=== PATIENT | female | born 1940 | race Two or more races ===

== ENCOUNTER 2020-05-04 16:38 | Emergency (ER) | payer OTHER ==
[2020-05-04 16:56] VITALS: BP 156/75; PULSE 71; TEMP 97.3; BMI 28.7
--- NOTE | 2020-05-04 17:04 | PDOC ---
History of Present Illness - General Chief Complaint: Altered Mental Status Stated Complaint: AMS Time Seen by Provider: 05/04/20 16:48 - History of Present Illness Initial Comments: Radha Hart is a 79 y/o female with PMH significant HTN and HLD, BIBEMS after being found wandering outside in the rain. Pt is visiting from [place] and has been here for the past several months. Staying with daughter, who has noticed gradually worsening memory loss and confusion over the past 2-3 months. Today was the first time patient walked outside of the home and was found wandering around. A&Ox2 to person and place. Pt denies any complaints. No chest pain/shortness of breath. No abd pain. No leg swelling. No back pain. No headache. Past History - Medical History Allergies/Adverse Reactions: Allergies Allergy/AdvReac Type Severity Reaction Status Date / Time No Allergy Information Allergy Verified 05/04/20 16:56 Available Home Medications: Ambulatory Orders NK [No Known Home Medication] 05/04/20 COPD: No HTN: Yes Hypercholesterolemia: Yes - Psycho-Social/Smoking History Smoking History: Never smoked Have you smoked in the past 12 months: No Information on smoking cessation initiated: No - Substance Abuse Hx (Audit-C & DAST Scrn) How often the patient has a drink containing alcohol: Never Score: In Men: 4 or > Positive; In Women: 3 or > Positive: 0 Screen Result (Pos requires Nsg. Audit-10AR): Negative In the last yr the pt used illegal drug/Rx for NonMed reason: No Score: Yes response is considered Positive: 0 Screen Result (Positive result requires Nsg. DAST-10): Negative Review of Systems - Review of Systems Comments:: GENERAL/CONSTITUTIONAL: No fever or chills. No weakness._ HEAD, EYES, EARS, NOSE AND THROAT: No change in vision. No change in hearing. No sore throat._ CARDIOVASCULAR: No chest pain or shortness of breath_ RESPIRATORY: Denies cough, hemoptysis_ GASTROINTESTINAL: No nausea, vomiting, diarrhea or constipation._ GENITOURINARY: No dysuria, frequency, or change in urination._ MUSCULOSKELETAL: No joint or muscle swelling or pain. No neck or back pain._ SKIN: No rash_ NEUROLOGIC: No headache, vertigo, loss of consciousness, or change in strength/sensation._ ENDOCRINE: No increased thirst. No abnormal weight change_ HEMATOLOGIC/LYMPHATIC: No anemia, easy bleeding, or history of blood clots._ ALLERGIC/IMMUNOLOGIC: No hives or skin allergy._ *Physical Exam - Vital Signs Last Vital Signs Temp Pulse Resp BP Pulse Ox 97.3 F L 71 18 156/75 97 05/04/20 16:48 05/04/20 16:48 05/04/20 16:48 05/04/20 16:48 05/04/20 16:48 - Physical Exam GENERAL: Awake, alert, and oriented to person/place, in no acute distress_ HEAD: No signs of trauma, normocephalic, atraumatic _ EYES: PERRLA, EOMI, sclera anicteric, conjunctiva clear_ ENT: Hearing grossly normal, nares patent, oropharynx clear without exudates. No uvular deviation. Moist mucosa_ NECK: Normal ROM, supple, no lymphadenopathy, JVD, or masses_ LUNGS: No distress, speaks in full sentences, clear to auscultation bilaterally _ HEART: Regular rate and rhythm, normal S1 and S2, no murmurs appreciated, peripheral pulses normal and equal bilaterally._ ABDOMEN: Soft, nontender, normoactive bowel sounds. No guarding, no rebound. No masses_ EXTREMITIES: Normal inspection, Normal range of motion, no edema. No clubbing or cyanosis_ NEUROLOGICAL: Cranial nerves II through XII grossly intact. Normal speech, normal gait, no focal sensorimotor deficits _ SKIN: Warm, Dry, normal turgor, no rashes or lesions noted_ Medical Decision Making - Medical Decision Making 05/04/20 17:30 79F BIBEMS after daughter reported her missing and she was found wandering around the streets. No complaints at this time. Exam wnl. Daughter is at bedside and able to care for patient. Safe discharge plan in place. Will send home with PCP and neuro f/u for likely dementia. All questions answered. Return precautions given. Pt and daughter verbalized understanding and agreement with plan. Discharge - Discharge Information Problems reviewed: Yes Clinical Impression/Diagnosis: Altered behavior Condition: Stable Disposition: HOME - Admission No - Follow up/Referral Referrals: [facility] [place] [facility] [place] [Provider Group] Robin Leal MD [Non Staff, Medical] - - Patient Discharge Instructions Patient Printed Discharge Instructions: DI for Alzheimer's Disease Additional Instructions: Please make a follow up appointment with a primary care doctor and a neurologist (referral provided here). Please keep yourself well hydrated and nourished. If you experience any new, worsening, or concerning symptoms, including change in mental status, confusion, lethargy, chest pain, shortness of breath, or any other concerns, please return to the emergency department. - Post Discharge Activity
--- NOTE | 2020-05-04 17:20 | PDOC ---
Documentation entered by Merissa Kapoor SCRIBE, acting as scribe for Sven Groves MD. Sven Groves MD: This documentation has been prepared by the Emelia gimenez Adrianna, SCRIBE, under my direction and personally reviewed by me in its entirety. I confirm that the documentation accurately reflects all work, treatment, procedures, and medical decision making performed by me. Attending Attestation - Resident Resident Name: Jarrett Frye - ED Attending Attestation I have performed the following: I have examined & evaluated the patient, The case was reviewed & discussed with the resident, I agree w/resident's findings & plan, Exceptions are as noted - HPI HPI: The patient is a 78 year old female, with a significant PMH of dementia (progressively worsening over the past 3 months), HTN, and HLD, who presents to the ED after being found wandering outside. As per daughter at bedside, the patient wandered out of the house and could not be found. The daughter called the police, and the patient was found walking around in the rain and was brought to the ED by EMS. Daughter states that the pt is at her baseline mentation. Pt has no complaints. - Physicial Exam PE: GENERAL: The patient is awake, alert, and fully oriented, Nontoxic - in no acute distress. HEAD: Normocephalic, atraumatic. EYES: extraocular movements intact, sclera anicteric, conjunctiva clear. ENT: Normal voice, Moist mucous membranes. NECK: Normal range of motion, supple LUNGS: Breath sounds equal, clear to auscultation bilaterally. No wheezes, no rhonchi, no rales. HEART: Regular rate and rhythm, without murmur, rub or gallop. ABDOMEN: Soft, nontender, No guarding, no rebound.No CVA tenderness EXTREMITIES: Normal range of motion, no edema. No cyanosis. No erythema, or tenderness. NEUROLOGICAL: No facial asymmetry, Normal speech, PSYCH: Normal mood, normal affect. SKIN: Warm, Dry, normal turgor. - Medical Decision Making 05/04/20 17:18 78 F with dementia brought to ED by EMS after being found wandering outside. Pt with no acute complaints and is at baseline mentation per daughter. No focal neuro deficits or s/s suggestive of acute medical problem. - Will DC with neuro f/u Pt is well appearing, with normal vitals. Clinically stable for DC at this time. I discussed the physical exam findings, ancillary test results and final diagnoses with the patient. I answered all of the patient's questions. The patient was satisfied with the care received and felt comfortable with the discharge plan and treatment plan. The patient agrees to follow up with the primary care physician within 24-72 hours. Please note this patient was evaluated during the COVID-19 crisis with the presidential [place] Act Declaration and the [employer] governor executive order number 202. He/she was evaluated and clinical decisions were made relative to healthcare system resources as well as clinical picture during a pandemic crisis situation. Discharge - Discharge Information Problems reviewed: Yes Clinical Impression/Diagnosis: Altered behavior Condition: Stable Disposition: HOME - Follow up/Referral [place] [facility] [place] [facility] [place]Provider Group] Robin Leal MD [Non Staff, Medical] - - Patient Discharge Instructions Patient Printed Discharge Instructions: DI for Alzheimer's Disease Additional Instructions: Please make a follow up appointment with a primary care doctor and a neurologist (referral provided here). Please keep yourself well hydrated and nourished. If you experience any new, worsening, or concerning symptoms, including change in mental status, confusion, lethargy, chest pain, shortness of breath, or any other concerns, please return to the emergency department. - Post Discharge Activity
== END 2020-05-04 17:32 | disposition home or self-care (01) ==
LOC: JER 16:38
DX: R46.89 Other symptoms and signs involving appearance and behavior (principal)
CPT/HCPCS: 99283-25

== ENCOUNTER 2020-08-15 15:52 | Emergency (ER) | payer OTHER ==
[2020-08-15 16:02] VITALS: BP 128/72; PULSE 64; BMI 30.1
--- OUTSIDE RECORDS SUMMARY | 2020-08-15 16:25 | XMS ---
:1940 [facility] Care Team Providers Name Role Phone EMERGENCY SERVICE, X Unavailable Unavailable COCUZZA, NITA Unavailable Unavailable NOBLER, PAVEL Unavailable Unavailable Re-disclosure Warning The records that you are about to access may contain information from federally- assisted alcohol or drug abuse programs. If such information is present, then the following federally mandated warning applies: This information has been disclosed to you from records protected by federal confidentiality rules (42 CFR part 2). The federal rules prohibit you from making any further disclosure of this information unless further disclosure is expressly permitted by the written consent of the person to whom it pertains or as otherwise permitted by 42 CFR part 2. A general authorization for the release of medical or other information is NOT sufficient for this purpose. The Federal rules restrict any use of the information to criminally investigate or prosecute any alcohol or drug abuse patient.The records that you are about to access may contain highly sensitive health information, the redisclosure of which is protected by Article 27-F of the [facility] Public Health law. If you continue you may haveaccess to information: Regarding HIV / AIDS; Provided by facilities licensed or operated by the [facility] Office of Mental Health; or Provided by the [facility] Office for People With Developmental Disabilities. If such information is present, then the following [facility] mandated warning applies: This information has been disclosed to you from confidential records which are protected by state law. State law prohibits you from making any further disclosure of this information without the specific written consent of the person to whom it pertains, or as otherwise permitted by law. Any unauthorized further disclosure in violation of state law may result in a fine or retirement sentence or both. A general authorization for the release of medical or other information is NOT sufficient authorization for further disclosure. Allergies and Adverse Reactions Type Description Substance Reaction Status Data Source(s ) Drug allergy No Known Allergies No Known [facility] Allergies [facility] Drug allergy No Known Drug No Known Drug [facility] Allergies Allergies [facility] Food allergy No Known Food No Known Food [facility] Allergies Allergies [facility] Care [facility] Encounters Encounter Providers Location Date Indications Data Source(s ) Inpatient Attender: UZIEL 07/11/2020 DEPRESSION [facility] PAVELAdmitter: 09:40:00 PM Health Care UZIEL PAVEL EDT - Corporat ion 07/19/2020 02:43:00 PM EDT DEPRESSION Patient admitted. Emergency Attender: UZIEL 07/11/2020 NOT SLEEPING [facility] PAVELAttender: 11:06:00 AM EDT FOR 3 DAYS Co [facility] EMERGENCY SERVICE, Care C orporation XAdmitter: EMERGENCY SERVICE, X NOT SLEEPING FOR 3 DAYS Emergency Attender: QUIANA 04/05/2020 03:30:00 ANKLE PA IN [facility] TINAAttender: EMERGENCY [facility], XAdmitter: Corpo ration COCUZZA, NITA ANKLE PAIN Medications Medication Brand Start Product Dose Route Administrative Pharmacy [facility] Indications Reaction Description Data Name Date Form Instructions Instructions Source(s) Colace Colace UNK active Colace [facility] (Docusate S (Docus 2020 mg (Docusate r County ate S 08:54: Sodium) Oral Heal th 47 PM 100 mg PO Care EDT Corporatio n Medication administered onsite Naproxen 04/05/2020 999 UNK completed Napro xen 500 [place] 500 MG 06:06:45 PM MG MG Oral Cou Your Policy Manager Health Oral EDT Tablet Care Tablet [N [Naprosyn] Didier oration Take one (1) by mouth two (2) times a day with food as needed for pain Dispense: 20 Naproxen 04/05/2020 999 UNK completed Napro xen 500 [place] 500 MG 06:06:45 PM MG MG Oral Cou ntC3 [employer] Health Oral EDT Tablet Care Tablet [N [Naprosyn] Didier oration Take one (1) by mouth two (2) times a day with food as needed for pain Dispense: 20 Tylenol Tylenol 04/05/2020 650 UNK active Tylen ol [place] (Acetamino (Acetamin 03:52:54 PM mg (A cetaminoph [facility] ph oph EDT en) Oral 650 Care mg PO Corporation Medication administered onsite Insurance Providers Payer name Policy type Policy ID Covered Covered republican's Policy P casey / Coverage republican ID relationship to [facility] type kirby MEDICAID [id number] SP [id number] UNK UNK UNK SELF PAY SP INSURANCE Problems, Conditions, and Diagnoses Code Display Name Description Problem Type Effective Data Sour ce(s) Dates Z20.828 Contact with and CONTACT W AND Diagnosis 07/19/2020 [facility] (suspected) EXPOSURE TO OTH 02:43:00 PM [facility] exposure to other VIRAL COMMUNICABLE EDT Care viral communicable DISEASES Corpor ation diseases J45.909 Unspecified UNSPECIFIED Diagnosis 07/19/2020 [place] asthma, ASTHMA, 02:43:00 PM [facility] uncomplicated UNCOMPLICATED EDT Care Corporation E78.5 Hyperlipidemia, HYPERLIPIDEMIA, Diagnosis 07/19/2020 [place] unspecified UNSPECIFIED 02:43:00 PM [facility] EDT Care Corporation I10 Essential ESSENTIAL Diagnosis 07/19/2020 [place] (primary) (PRIMARY) 02:43:00 PM [facility] hypertension HYPERTENSION EDT Care Corporation R41.9 Unspecified UNSP SYMPTOMS AND Diagnosis 07/19/2020 [facility] symptoms and signs SIGNS W COGNITIVE 02:43:00 P [facility] involving FUNCTIONS AND EDT Care cognitive AWARENESS Corporation functions and awareness F31.9 Bipolar disorder, BIPOLAR DISORDER, Diagnosis 07/19/2020 [place] unspecified UNSPECIFIED 02:43:00 PM [facility] EDT Care Corporation F32.9 Major depressive MAJOR DEPRESSIVE Diagnosis 07/11/2020 [facility] clark disorder, single DISORDER, SINGLE 09:40:00 PM [facility] episode, EPISODE, EDT Care unspecified UNSPECIFIED Corporation E78.00 Pure PURE Diagnosis 04/05/2020 [place] hypercholesterolem HYPERCHOLESTEROLEM 03:30:00 PM [facility] ia, unspecified IA, UNSPECIFIED EDT Care Corporation M17.11 Unilateral primary UNILATERAL PRIMARY Diagnosis 0 [place] osteoarthritis, OSTEOARTHRITIS, 03:30:00 PM [facility] right knee RIGHT KNEE EDT Care Corporation M71.21 Synovial cyst of SYNOVIAL CYST OF Diagnosis 04/05/[address] [facility] popliteal space POPLITEAL SPACE 03:30:00 PM [facility] T[employer]ine [Selina], right (SELINA), RIGHT EDT Care knee KNEE [employer] [facility] M79.661 Pain in right PAIN IN RIGHT Diagnosis 04/05/2020 [facility] lower leg LOWER LEG 03:30:00 PM [facility] EDT Care [facility] [facility] Results ID Date Data Source [id number] 07/13/2020 01:30:00 PM EDT [facility] [id number] Corporation Name Value Range Interpretation Description Data Sup porting Code Source(s) Document(s ) Brain (PACSIMAGE <td> 07/13/2020 [place] With&With 13:30</td><td> [facility] ) Final [facility] Care Contrast- Result With&Without Corporation MRI Name: Daryl WHITESIDE-MRI [place] MRN: </td><td><paragra [id number] Sex: F ph : styleCode="Italic 1940 s">(PACSIMAGE Location: F Admitting )</paragraph><br/ Physician: >
Final PAVEL Result NOBLER

Requesting Name: MIESHA Physician: CA GUTIÉRREZ
MRN: Exam: MRI [id number] Sex: F BRAIN C+/C-
07/13/2020 : 1940 14:33 Location: F CLINICAL
INDICATION: Admitting Depression, Physician: altered mental PAVEL NOBLER status
COMPARISON: CT Requesting of the head Physician: ANDREW July 11BROCK 2019

TECHNIQUE: Exam: MRI BRAIN Multiplanar, C+/C- 07/13/2020 multisequence 14:33 MR imaging of

the brain CLINICAL was attempted, INDICATION: but patient Depression, aborted exam altered mental before all status postcontrast

imaging could COMPARISON: CT of be obtained. the head CONTRAST: July 11, of 2019 Gadavist.

FINDINGS: TECHNIQUE: Early Multiplanar, termination of multisequence MR examination by imaging of the patient, brain particularly
was before attempted, but postcontrast patient aborted imaging was exam before all obtained, postcontrast limits
evaluation. imaging could be Additionally, obtained. motion limits

evaluation. CONTRAST: 6 mL of There is no Gadavist. evidence of

mass, FINDINGS: intracranial

hemorrhage, or Early termination acute of examination by infarction. No patient, abnormal particularly intracranial before enhancement is
seen. postcontrast There are imaging was moderate obtained, limits subcortical evaluation. and Additionally, periventricula
r T2/FLAIR motion limits hyperintensiti evaluation. es as well

as in the There is no zuleyka, evidence of mass, nonspecific intracranial but likely hemorrhage, or representing acute chronic
ischemic infarction. No change. abnormal Chronic intracranial infarctions enhancement is are seen seen. within the

left basal There are ganglia. moderate There is subcortical and prominence of periventricular the T2/FLAIR ventricular hyperintensities system and
sulci as well as in consistent the zuleyka, with volume nonspecific but loss . No likely midline shift representing or other chronic significant
mass effect ischemic change. is noted. Chronic There is infarctions are preserved seen within the flow-void left within the
basal proximal ganglia. intracranial

arteries, There is suggestive of prominence of the their patency. ventricular The orbital system and sulci contents are consistent grossly
unremarkable. with volume loss There is . No midline no cerebellar shift or other tonsillar significant mass ectopia.
IMPRESSION: effect is Limited noted. evaluation due

to motion and There is patient preserved terminating flow-void within examination.. the proximal 1. No intracranial evidence of
acute arteries, infarction or suggestive of hemorrhage. their patency. 2. No abnormal The orbital intraparenchym contents are al enhancement
on limited grossly postcontrast unremarkable. imaging.

Resident There is no Radiologist: cerebellar Attending tonsillar Radiologist: ectopia. Khoi

Salvatore SANTILLAN IMPRESSION: Finalizing

Radiologist: Juhi Westfall evaluation due to Salvatore SANTILLAN motion and Transcribed patient Date: terminating 07/13/2020 examination.. 14:35

Finalized 1. No Date: evidence of acute 07/13/2020 infarction or 14:50 hemorrhage.
2. No abnormal intraparenchymal enhancement on limited postcontrast
imaging.

<b r/> Resident Radiologist:
Attending Radiologist: Khoi Chase MD
Finalizing Radiologist: Khoi Chase MD
Transcribed Date: 07/13/2020 14:35
Finalized Date: 07/13/2020 14:50

</td> Head (PACSIMAGE <td> 07/11/2020 [facility] 14:19</td><td> County Contrast- ) Final Head Without Health Care CT Result Contrast-CT Corporation Name: MIESHA, </td><td><paragra [place] MRN: ph [id number] Sex: F styleCode="Italic : s">(PACSIMAGE 1940 Location: F )</paragraph><br/ Admitting >
Final Physician: Result EMERGENCY

SERVICE Name: MIESHAHiraing [place] Physician: JULIO CESAR
MRN: JUNI [id number] Sex: F Exam: CT HEAD
C- 07/11/2020 : 1940 14:30 Location: F CLINICAL
HISTORY: Admitting "Altered Physician: mental EMERGENCY SERVICE status"
COMPARISON: Requesting None Physician: JULIO CESAR TECHNIQUE: CT JUNI of the head

without Exam: CT HEAD C- intravenous 07/11/2020 14:30 contrast performed

with axial CLINICAL image HISTORY: "Altered acquisition. mental status" FINDINGS: There is no

evidence of COMPARISON: None acute intracranial

hemorrhage, TECHNIQUE: CT of mass effect the head without or shift of intravenous the midline contrast structures. No performed evidence of
with hydrocephalus. axial image There is acquisition. mild

periventricula FINDINGS: r white matter
hypodensity There is no likely evidence of acute sequela of intracranial chronic small hemorrhage, mass vessel change. effect No evidence of
or depressed shift of the calvarial midline fracture. The structures. No visualized evidence of paranasal hydrocephalus. sinuses and
mastoid air There is mild cells are periventricular clear. white matter IMPRESSION: hypodensity 1. No evidence likely of acute
sequela intracranial of chronic small hemorrhage, vessel change. No mass effect, evidence of or shift of depressed the midline
structures. calvarial 2. Mild fracture. The chronic small visualized vessel paranasal sinuses ischemic and mastoid disease.
air cells are Resident clear. Radiologist:

Chapin IMPRESSION: Wilmer SANTILLAN
1. Resident No evidence of Radiologistt acute Attending intracranial Radiologist: hemorrhage, mass Byron Harvey MD effect, Finalizing
or Radiologist: shift of the Byron Harvey MD midline Transcribed structures. Date:
2. 07/11/2020 Mild chronic 14:50 small vessel Finalized ischemic disease. Date: 07/11/2020

<b 14:57 r/>

<br/ > Resident Radiologist: Chapin Guillen MD Resident Radiologistt
Attending Radiologist: Byron Harvey MD
Finalizing Radiologist: Byron Harvey MD
Transcribed Date: 07/11/2020 14:50
Finalized Date: 07/11/2020 14:57

</td> Chest (PACSIMAGE <td> 07/11/2020 [place] Portable 12:24</td><td> [facility] ) Final Chest Portable Health Care Result </td><td>[employer] Name: ana m WHITESIDE MRN: styleCode="Zacharyic [id number] Sex: F s">(PACSIMAGE : 1940 )</paragraph><br/ Location: F >
Final Admitting Result Physician:

EMERGENCY Name: MIESHA SERVICE CA Requesting
MRN: Physician: JULIO CESAR [id number] Sex: F JUNI
Exam: CHEST : 1940 PORTABLE Location: F 07/11/2020
12:44 Admitting EXAM: Chest Physician: Portable 1 EMERGENCY SERVICE view
COMPARISON: Requesting None Physician: JULIO CESAR INDICATION: JUNI Altered mental

status Exam: CHEST FINDINGS: PORTABLE LINES AND 07/11/2020 12:44 TUBES: None LUNGS AND

PLEURA: Clear EXAM: Chest lungs. The Portable 1 view costophrenic sulci are not

blunted. COMPARISON: None HEART AND MEDIASTINUM:

Unremarkable INDICATION: for projection Altered mental BONES AND status SOFT TISSUES:

No acute FINDINGS: abnormality.

IMPRESSION: LINES AND TUBES: Unremarkable None chest
LUNGS radiograph AND PLEURA: Clear lungs. The Resident costophrenic Radiologist: sulci are not Krissy Negrete
, Resident blunted. Radiologistt
HEART Attending AND MEDIASTINUM: Radiologist: Unremarkable for Melba projection George SANTILLAN
Finalizing BONES AND SOFT Radiologist: TISSUES: No acute Melba abnormality. George SANTILLAN

Transcribed IMPRESSION: Date: Unremarkable 07/11/2020 chest radiograph 12:56 Finalized

<b Date: r/> Resident 07/11/2020 Radiologist: 16:05 Krissy Negrete MD, Resident Radiologistt
Attending Radiologist: Melba Vazquez MD
Finalizing Radiologist: Melba Vazquez MD
Transcribed Date: 07/11/2020 12:56
Finalized Date: 07/11/2020 16:05

</td> ID Date Data Source [id number] 07/11/2020 12:35:00 PM EDT [facility] [id number] Corporation Name Value Range Interpretation Description Data Sup porting Code Source(s) Document(s ) Hemoglobin 12.0 g/dL 12.0-1 <td> 07/11/2020 [place] [Mass/volume 6.0 12:35</td><td> County ] in Blood g/dL HGB </td><td> Health Care Corporation 12.0
(12.0-16.0) g/dL </td> Erythrocytes 5.26 m/mm3 3.90-5 <td> 07/11/2020 [facility] r [#/volume] .20 12:35</td><td> County in Blood m/mm3 RBC Health Care </td><td><Nubity raph styleCode="Bold "> 5.26 H </paragraph>
(3.90-5.20) m/mm3 </td> Leukocytes 5.4 k/mm3 4.8-10 <td> 07/11/2020 [place] [#/volume] .8 12:35</td><td> County in Blood by k/mm3 WBC </td><td> Health Care Automated [employer] count 5.4
(4.8-10.8) k/mm3 </td> Erythrocyte 30.7 % 32.0-3 <td> 07/11/2020 [place] mean 6.0 % 12:35</td><td> County corpuscular [facility] Health Care hemoglobin </td><td><Nubity concentratio raph n styleCode="Bold [Mass/volume "> ] in Blood 30.7 from Fetus L by Automated </paragraph><br count /> (32.0-36.0) % </td> Hematocrit 39.1 % 37.0-4 <td> 07/11/2020 [place] [Volume 7.0 % 12:35</td><td> County Fraction] of HCT </td><td> Health Care Blood by Corporation Automated 39.1 count
(37.0-47.0) % </td> Erythrocyte 74.3 fL 81.0-9 <td> 07/11/2020 [place] mean 9.0 fL 12:35</td><td> [facility] corpuscular [facility] Health Care volume </td><td><[employer] Corporation [Entitic raph volume] by styleCode="Bold Automated "> count 74.3 L </paragraph>
(81.0-99.0) fL </td> Erythrocyte 22.8 pg 27.0-3 <td> 07/11/2020 [place] mean 1.5 pg 12:35</td><td> [facility] corpuscular [facility] Health Care hemoglobin </td><td><chacorta Corporation [Entitic raph mass] by styleCode="Bold Automated "> count 22.8 L </paragraph>
(27.0-31.5) pg </td> Erythrocyte 14.9 % 11.5-1 <td> 07/11/2020 [place] distribution 4.5 % 12:35</td><td> County width RDW Health Care [Entitic </td><td><chacorta Corporation volume] by raph Automated styleCode="Bold count "> 14.9 H </paragraph>
(11.5-14.5) % </td> Platelet 9.2 fL 9.8-12 <td> 07/11/2020 [place] mean volume .8 fL 12:35</td><td> County [Entitic MPV Health Care volume] in </td><td><chacorta [employer] Blood by raph Automated styleCode="Bold count "> 9.2 L </paragraph>
(9.8-12.8) fL </td> Monocytes/Le 10.5 % 0.0-11 <td> 07/11/2020 [place] ukocytes .0 % 12:35</td><td> County [Pure number Monocytes. Health Care fraction] in </td><td> Corporation Blood by Automated 10.5 count
(0.0-11.0) % </td> Basophils+Eo 6.5 % 0.0-5. <td> 07/11/2020 [place] sinophils+Mo 0 % 12:35</td><td> County nocytes Eosinophils Health Care [#/volume] </td><td><chacorta Corporation in Blood by raph Automated styleCode="Bold count "> 6.5 H </paragraph>
(0.0-5.0) % </td> Basophils 0.7 % 0.0-2. <td> 07/11/2020 [place] [#/volume] 0 % 12:35</td><td> County in Blood by Basophils [facility] Care Automated </td><td> Corporation count 0.7
(0.0-2.0) % </td> Lymphocytes 24.9 % 17.0-5 <td> 07/11/2020 [place] [#/volume] 0.0 % 12:35</td><td> County in Blood by Lymphocytes [facility] Care Automated </td><td> Corporation count 24.9
(17.0-50.0) % </td> Platelets 379 k/mm3 160-41 <td> 07/11/2020 [place] [#/volume] 0 12:35</td><td> County in Blood by k/mm3 Platelet Count Health Care Automated </td><td> Corporation count 379
(160-410) k/mm3 </td> Neutrophils 57.0 % 40.0-7 <td> 07/11/2020 [place] [#] in Body 6.0 % 12:35</td><td> County fluid by Neutrophils [facility] Care Manual count </td><td> Corporation 57.0
(40.0-76.0) % </td> Immature 0.4 % 0.0-0. <td> 07/11/2020 [place] granulocytes 5 % 12:35</td><td> County /100 IG% </td><td> Health Care leukocytes Corporation in Blood by 0.4 Automated count
(0.0-0.5) %
The IG fraction represents metamyelocytes, myelocytes and/or
promyelocytes and is only reported as part of the automated
differential when found at a percentage of less than 6.
If higher than 6%, a manual differential will be performed.

(0.0-0.5) % </td> Sodium 138 mEq/L 135-14 <td> 07/11/2020 [place] [Moles/volum 5 12:35</td><td> County e] in Serum mEq/L Sodium-Serum Health Care or Plasma </td><td> Corporation 138
(135-145) mEq/L </td> Ovalocytes Few <td> 07/11/2020 [place] [Presence] 12:35</td><td> County in Blood by Ovalocytes Health Care Light </td><td> Corporation microscopy Few
</td> Glucose 97 mg/dL 70-105 <td> 07/11/2020 [place] [Mass/volume mg/dL 12:35</td><td> County ] in Blood Glucose-Serum Health Care </td><td> [employer] 97
(70-105) mg/dL </td> Potassium 4.7 mEq/L 3.5-5. <td> 07/11/2020 [place] [Moles/volum 1 12:35</td><td> County e] in Serum mEq/L Potassium-Serum Health Care or Plasma </td><td> [employer] 4.7
(3.5-5.1) mEq/L </td> Carbon 29 mEq/L 22-30 <td> 07/11/2020 [place] dioxide, mEq/L 12:35</td><td> [facility] total CO2 </td><td> Health Care [Moles/volum Corporation e] in Serum 29 or Plasma
(22-30) mEq/L </td> Aspartate 24 U/L 4-35 <td> 07/11/2020 [place] aminotransfe U/L 12:35</td><td> [facility] rase AST (SGOT) Health Care [Enzymatic </td><td> Corporation activity/vol ume] in 24 Serum or
Plasma (4-35) U/L </td> Chloride 102 mEq/L 98-107 <td> 07/11/2020 [place] [Moles/volum mEq/L 12:35</td><td> County e] in Serum Chloride Health Care or Plasma </td><td> [employer] 102
(98-107) mEq/L </td> Urea 8 mg/dL 6-22 <td> 07/11/2020 [place] nitrogen mg/dL 12:35</td><td> [facility] [Mass/volume BUN </td><td> Health Care ] in Blood Corporation 8
(6-22) mg/dL </td> Creatinine 0.69 mg/dL 0.57-1 <td> 07/11/2020 [place] [Moles/volum .11 12:35</td><td> County e] in Serum mg/dL Creatinine. Health Care or Plasma </td><td> [employer] 0.69
(0.57-1.11) mg/dL </td> Bilirubin.to 0.6 mg/dL 0.2-1. <td> 07/11/2020 [place] caitlin 3 12:35</td><td> [facility] [Mass/volume mg/dL Bilirubin - Health Care ] in Blood Total [employer] </td><td> 0.6
(0.2-1.3) mg/dL </td> Anion gap in 7 mEq/L 7-13 <td> 07/11/2020 [place] Serum or mEq/L 12:35</td><td> [facility] Plasma Anion Gap Health Care </td><td> [employer] 7
(7-13) mEq/L </td> Albumin 4.1 g/dL 3.4-4. <td> 07/11/2020 [place] [Mass/volume 8 g/dL 12:35</td><td> [facility] ] in Serum Albumin Health Care or Plasma </td><td> [employer] 4.1
(3.4-4.8) g/dL </td> Alanine 21 U/L 6-55 <td> 07/11/2020 [place] aminotransfe U/L 12:35</td><td> [facility] rase ALT (SGPT) Health Care [Enzymatic </td><td> Corporation activity/vol ume] in 21 Serum or
Plasma (6-55) U/L </td> Proteins - 7.1 g/dL 6.4-8. <td> 07/11/2020 [place] Total 3 g/dL 12:35</td><td> [facility] Proteins - Health Care Total Corporation </td><td> 7.1
(6.4-8.3) g/dL </td> Calcium 9.6 mg/dL 8.6-10 <td> 07/11/2020 [place] [Mass/volume .2 12:35</td><td> [facility] ] in Blood mg/dL Calcium Health Care </td><td> [employer] 9.6
(8.6-10.2) mg/dL </td> Icteric Not Icteric <td> 07/11/2020 [place] index of 12:35</td><td> [facility] Serum or Icteric Index Health Care Plasma </td><td> [employer] Not Icteric
</td> Lipemic No Lipemia <td> 07/11/2020 [place] index of 12:35</td><td> [facility] Serum or Lipemia Index Health Care Plasma </td><td> [employer] No Lipemia
</td> Globulin 3.0 gm/dL 2.9-4. <td> 07/11/2020 [place] [Mass/volume 0 12:35</td><td> [facility] ] in Serum gm/dL Globulin Health Care </td><td> [employer] 3.0
(2.9-4.0) gm/dL </td> Hemolysis No Hemolysis <td> 07/11/2020 [place] index of 12:35</td><td> [facility] Serum or Hemolysis Index Health Care Plasma </td><td> [employer] No Hemolysis
</td> Prothrombin 11.8 secs 9.4-12 <td> 07/13/2020 [place] time (PT) .5 19:42</td><td> [facility] secs Prothrombin Health Care Time. [facility] </td><td> 11.8
(9.4-12.5) secs </td> Protein Negative <td> 07/11/2020 [place] [Presence] 12:35</td><td> County in Urine by Protein Health Care Automated [employer] Corporation test strip </td><td> Negative
(NEGATIVE) </td> aPTT panel - 28.9 secs 25.0-3 <td> 07/13/2020 [place] Platelet 6.5 19:42</td><td> County poor plasma secs Partial Health Care Thromboplastin Corporation Time </td><td> 28.9
(25.0-36.5) secs
PLEASE NOTE: New reference range in effect May 16, 2020.

(25.0-36.5) secs </td> Urobilinogen 0.2 mg/dL 0.0-2. <td> 07/11/2020 [place] [Presence] 0 12:35</td><td> County in Urine by mg/dL Urobilinogen Health Care Automated </td><td> Corporation test strip 0.2
(0.0-2.0) mg/dL </td> Glucose Negative <td> 07/11/2020 [place] [Presence] 12:35</td><td> County in Urine by Glucose_ Health Care Test strip </td><td> Corporation Negative
(NEGATIVE) </td> Appearance Clear <td> 07/11/2020 [place] of Urine 12:35</td><td> County Appearance Health Care </td><td> Corporation Clear
(CLEAR) </td> Specific 1.015 {} 1.000- <td> 07/11/2020 [place] gravity of 1.035 12:35</td><td> County Urine by Specific Health Care Test strip [employer] </td><td> 1.015
(1.000-1.035) </td> Leukocyte Negative <td> 07/11/2020 [place] esterase 12:35</td><td> [place] [Presence] Leukocytes Health Care in Urine by [employer] Test strip </td><td> Negative
(NEGATIVE) </td> Nitrite Negative <td> 07/11/2020 [place] [Presence] 12:35</td><td> [place] in Urine by Nitrites Health Care Test strip </td><td> Corporation Negative
(NEGATIVE) </td> Leukocyte Not Indicated <td> 07/11/2020 [facility] r esterase 12:35</td><td> [facility] [Presence] Physiochemica Urine Health Care in Urine by l tests: Microscopic. [employer] Test strip Protein, </td><td> Leukocyte, Not Indicated Blood and
Nitrates are negative. Physiochemical Microscopic tests: Protein, exam not Leukocyte, performed. Blood and Nitrates are
negative. Microscopic exam not performed.

</td> ID Date Data Source [id number] 07/11/2020 12:00:00 AM EDT [facility] Name Value Range Interpretation Code Description Data Rosa rce(s) Supporting Document(s ) SARS-COV-2 [place] RNA RT-PCR [facility] This lab was ordered by [facility] and reported by [facility]. Procedure Vital Signs ID Date Data Source UNK Name Value Range Interpretation Code Description Data Source(s) Diastolic blood 80 {} Normal (applies to 80 {} [place] pressure non-numeric results) [facility] Systolic blood 161 {} Normal (applies to 161 {} [place] pressure non-numeric results) [facility] Heart rate 79.0000 {} Normal (applies to 79.0000 {} [place] non-numeric results) [facility] First Respiration 18.0000 {} Normal (applies to 18.0000 {} [place] rate Set non-numeric results) [facility] Body temperature 97.8000 {} Normal (applies to 97.8000 {} [place] non-numeric results) [facility] Patient Treatment Plan of Care Planned Activity Planned Date Details Description Data Source (s) Colace (Docusate S 07/11/2020 08:54:47 [facility] EDT [facility] poration Tylenol (Acetaminoph 04/05/2020 03:52:54 [facility] Jeronimo rg
--- NOTE | 2020-08-15 16:37 | PDOC ---
History of Present Illness - General Chief Complaint: Altered Mental Status Stated Complaint: AMS Time Seen by Provider: 08/15/20 16:36 - History of Present Illness Initial Comments: 08/15/20 16:36 HPI: Patient is an 80 y/o female with a PMH of alzheimers dementia who recently moved from [place] to live with her daughter and son in law. Earlier today, while her family was out the patient opened the front door and left for a walk. She has often left the house before and gotten lost. She was gone for approximately 30 minutes until neighbor a few houses away saw her and called the police. The police brought her in to the ED. One of daughters friends came to get her because daughter was still at her appointment. Reports this happens often and patient is at her baseline. ROS: Unable to assess due to dementia. Denies everything GENERAL/CONSTITUTIONAL: No fever/chills, diaphoresis, or weakness. Walks with cane at baseline. HEENT: No change in vision. No ear pain. No sore throat. CARDIOVASCULAR: No chest pain, palpitations or peripheral edema RESPIRATORY: No shortness of breath, dyspnea with exertion, cough, wheezing, or hemoptysis. GASTROINTESTINAL: No abdominal pain, nausea, vomiting, diarrhea or constipation. GENITOURINARY: No dysuria, frequency, or change in urination. MUSCULOSKELETAL: No joint or muscle swelling or pain. SKIN: No rash or hives NEUROLOGIC: No headache, vertigo, focal weakness, loss of consciousness, or change in strength/sensation. PMH: Denied PSx: Denied Social Hx: Denied etoh, tobacco, drug use Meds: See nurse note Allergies: See nurse note PE: GENERAL: Awake, alert, and oriented to person, in no acute distress. Patient is able to answer questions in mohawk. Appears smiling sitting on bed. States she wants to go home. HEENT: Normocephalic, atraumatic. PERRLA, EOMI. NECK: Normal ROM and supple. No lymphadenopathy, JVD, or masses. CARDIOVASCULAR: Regular rate and rhythm, normal S1 and S2, no murmurs, rubs or gallops PULMONARY: No respiratory distress. Breath sounds equal, clear to auscultation bilaterally. No wheezes, rales or rhonchi. ABDOMEN: Soft, nontender, normoactive bowel sounds. EXTREMITIES: Normal range of motion, no edema or erythema NEUROLOGICAL: Cranial nerves II through XII grossly intact. Normal speech. Walks with a cane. SKIN: Warm, Dry, normal turgor, no rashes or lesions noted. Normal capillary refill. PSYCHIATRIC: Cooperative MDM: Patient is an 80 y/o female with a PMH of alzheimers dementia who walked out of her daughters house earlier and wandered into a neighbors yard. She was gone for approximately 30 minutes prior to neighbor calling the police who brought her in. - Family friend with her states she often wanders. She wears a tag with her name and contact information. - Patient is well appearing, benign physical exam - Smiling and answering questions - A&Ox1 which is her baseline Family friend is here to take her miriam Patient is stable to d/c Past History - Medical History Allergies/Adverse Reactions: Allergies Allergy/AdvReac Type Severity Reaction Status Date / Time No Allergy Information Allergy Verified 05/04/20 16:56 Available Home Medications: Ambulatory Orders NK [No Known Home Medication] 05/04/20 COPD: No HTN: Yes Hypercholesterolemia: Yes - Reproductive History Is Patient Now?: No - Psycho-Social/Smoking History Smoking History: Smoker current status UNK Have you smoked in the past 12 months: No Information on smoking cessation initiated: No - Substance Abuse Hx (Audit-C & DAST Scrn) How often the patient has a drink containing alcohol: Never Score: In Men: 4 or > Positive; In Women: 3 or > Positive: 0 Screen Result (Pos requires Nsg. Audit-10AR): Negative In the last yr the pt used illegal drug/Rx for NonMed reason: No Score: Yes response is considered Positive: 0 Screen Result (Positive result requires Nsg. DAST-10): Negative *Physical Exam - Vital Signs Last Vital Signs Temp Pulse Resp BP Pulse Ox 64 18 128/72 97 08/15/20 15:57 08/15/20 15:57 08/15/20 15:57 08/15/20 15:57 Discharge - Discharge Information Problems reviewed: Yes Clinical Impression/Diagnosis: Alzheimer's dementia Qualifiers: Alzheimer's disease onset: unspecified onset Dementia behavioral disturbance: without behavioral disturbance Qualified Code(s): G30.9 - Alzheimer's disease, unspecified Condition: Good Disposition: HOME - Admission No - Follow up/Referral - Patient Discharge Instructions Patient Printed Discharge Instructions: DI for Alzheimer Disease Additional Instructions: Lleg al departamento de emergencias porque lo encontraron fuera de casa en la casa de los vecinos. No te quejabas de dolor. Te hicimos un examen fsico y todo fue normal. Regrese al servicio de urgencias con cualquier sntoma nuevo o que empeore. - Post Discharge Activity
--- NOTE | 2020-08-15 17:05 | PDOC ---
Attending Attestation - Resident Resident Name: Angle Talamantes - ED Attending Attestation I have performed the following: I have examined & evaluated the patient, The case was reviewed & discussed with the resident, I agree w/resident's findings & plan, Exceptions are as noted - HPI HPI: 08/15/20 16:58 80 yo female with h/o dementia wandered from her home and was missing for 30 minutes. She was found a little away from her home. She has no complaints - Physicial Exam PE: 08/15/20 17:00 wnwd 80 yo female in no distress head ncat extremities no deformities abdomen no rebound skin warm and dry, no lacerations neuro alert and conversant ,very poor historian ,ambulatory - Medical Decision Making 08/15/20 17:05 80 yo female with dementia who wandered from home family is here to take her home imp: dementia/wandering Discharge - Discharge Information Problems reviewed: Yes Clinical Impression/Diagnosis: Alzheimer's dementia Qualifiers: Alzheimer's disease onset: unspecified onset Dementia behavioral disturbance: without behavioral disturbance Qualified Code(s): G30.9 - Alzheimer's disease, unspecified Condition: Good Disposition: HOME - Follow up/Referral - Patient Discharge Instructions Patient Printed Discharge Instructions: DI for Alzheimer Disease Additional Instructions: Lleg al departamento de emergencias porque lo encontraron fuera de casa en la casa de los vecinos. No te quejabas de dolor. Te hicimos un examen fsico y todo fue normal. Regrese al servicio de urgencias con cualquier sntoma nuevo o que empeore. - Post Discharge Activity
== END 2020-08-15 17:07 | disposition home or self-care (01) ==
LOC: JER 15:52
DX: G30.9 Alzheimer's disease, unspecified (principal)
CPT/HCPCS: 99282-25